=== PATIENT | male | born 1985 | race African-American/Black ===

== ENCOUNTER 2018-01-29 16:15 | Emergency (ER) | payer OTHER ==
[~2018-01-29] VITALS: Ht 182.9 cm; Wt 83.9 kg
--- NOTE | 2018-01-29 16:40 | NUR ---
PT [id number] FROM HOME: AMS S/P TAKING UNKNOWN PILLS UNKNOWN QUANTITY. VSS. SEEN BY MD FOR EVAL. NO SOB NOTED. SAFETY AND COMFORT MEASURES PROVIDED. WILL MONITOR.
--- NOTE | 2018-01-29 17:20 | NUR ---
Pt ambulatory with a steady gait.
--- NOTE | 2018-01-29 18:00 | NUR ---
Patient discharged to home in stable condition. Written and verbal after care instructions given. Patient verbalizes understanding of instruction.
[2018-01-29 18:02] VITALS: BP 154/89
== END 2018-01-29 18:03 | disposition home or self-care (01) ==
LOC: ER 16:16
DX: T42.71XA Poisoning by unspecified antiepileptic and sedative-hypnotic drugs, accidental (unintentional), initial encounter (principal); R40.4 Transient alteration of awareness; Y92.89 Other specified places as the place of occurrence of the external cause; Z60.2 Problems related to living alone
CPT/HCPCS: A4606; Z7610

== ENCOUNTER 2021-02-13 23:29 | Emergency (ER) | payer BC, OTHER ==
[~2021-02-13] VITALS: Ht 180.3 cm; Wt 83.5 kg
--- NOTE | 2021-02-14 | NUR ---
MARIS C/O BACK SPASMS SINCE THIS AM, TOOK TYLENNOL @1800, NO RELIEF. HX OF BACK SURGERY. PATIENT IS A/OX 4, RR EVEN AND UNLABORED, NO SOB NOTED. PATIENT CONNECTED TO MONITOR, VSS, WILL CONTINUE TO MONITOR.
[2021-02-14] MEDS ORDERED: KETOROLAC TROMETHAMINE INJ 30 MG/ML VIAL ONE (00:10)
[2021-02-14] MEDS ORDERED: DIAZ2TAB PO (00:17)
[2021-02-14] MEDS ORDERED: NAPR-1009 PO (00:17)
[2021-02-14 00:19] VITALS: BP 138/74
--- NOTE | 2021-02-14 00:24 | NUR ---
Patient discharged to home in stable condition. Rx and Written and verbal after care instructions given. Patient verbalizes understanding of instruction.
[2021-02-14] MEDS ORDERED: KETOROLAC TROMETHAMINE INJ 30 MG/ML VIAL IM ONE (00:30)
== END 2021-02-14 00:24 | disposition home or self-care (01) ==
LOC: ER 23:29
DX: M54.5 Low back pain (principal); Z60.2 Problems related to living alone; Z79.899 Other long term (current) drug therapy
CPT/HCPCS: 96372; 99283; J1885

== ENCOUNTER 2022-08-09 19:12 | Emergency (ER) | payer BC, OTHER ==
[~2022-08-09] VITALS: Ht 182.9 cm; Wt 80.3 kg
[~2022-08-09 19:12] MED LIST: DIAZ2TAB PO; NAPR-1009 PO
[2022-08-09 19:51] VITALS: BP 129/88
[2022-08-09] MEDS ORDERED: CEPH500C2 PO ×2 (20:05→20:13)
[2022-08-09] MEDS ORDERED: IBUP-1957 PO ×2 (20:05→20:13)
--- NOTE | 2022-08-09 20:16 | NUR ---
INSPECTING AND TESTING LEAD HAND AT BEDSIDE FOR WOUND CARE
--- NOTE | 2022-08-09 20:19 | NUR ---
Patient discharged to home in stable condition. Written and verbal after care instructions given. Patient verbalizes understanding of instruction.
[2022-08-09] MEDS ORDERED: HYDROCODONE/APAP 5/325MG TABLET PO ONE (20:30)
== END 2022-08-09 20:21 | disposition home or self-care (01) ==
LOC: ER 19:13
DX: S61.011A Laceration without foreign body of right thumb without damage to nail, initial encounter (principal); F17.200 Nicotine dependence, unspecified, uncomplicated; Z60.2 Problems related to living alone; Z79.899 Other long term (current) drug therapy; W25.XXXA Contact with sharp glass, initial encounter; Y93.89 Activity, other specified; Y92.89 Other specified places as the place of occurrence of the external cause; Y99.8 Other external cause status
CPT/HCPCS: 99283; A6403